=== PATIENT | male | born 1980 | race Caucasian/White ===

== ENCOUNTER 2024-01-24 10:06 | Emergency (ER) | payer BC, SELFPAY ==
[2024-01-24 10:23] VITALS: BP 117/91; PULSE 71; RESP 18; TEMP 36.4; O2SAT 98
--- NOTE | 2024-01-24 10:24 | ED.URI ---
HPI - URI/Sore Throat General Chief Complaint: Extremity Problem,Nontraumatic Stated Complaint: Sinus/Allergies and R Kneww Time Seen by Provider: 01/24/24 10:39 Source: patient and RN notes reviewed Mode of arrival: ambulatory Limitations: no limitations History of Present Illness HPI Narrative: 43-year-old male presents with multiple complaints. Reports 25 day history of runny nose, postnasal drainage, cough, ear pain, sinus pain and pressure. He reports his face feels hot. Reports he has tried antihistamine and DayQuil without relief. He also reports right knee pain that started more than 2 years ago and has gotten worse since then, worsens with going down stairs, pops. He has occasional numbness and tingling in the area. He denies any direct injury or trauma to the knee. MD elicited complaint: cough, rhinorrhea, nasal congestion and sinus pain Related Data Home Medications Medication Instructions Recorded Confirmed esomeprazole magnesium 20 mg 20 mg PO DAILY 01/24/24 01/24/24 capsule,delayed release (Nexium) Allergies Allergy/AdvReac Type Severity Reaction Status Date / Time No Known Allergies Allergy Verified 01/24/24 10:26 Review of Systems Review of Systems: CONSTITUTIONAL: Denies malaise, chills, sweats, or fever. EYES: Denies visual changes, redness, or discharge. ENT: Reports rhinorrhea, congestion, sinus pain, otalgia CARDIOVASCULAR: Denies chest pain, palpitations, or edema. RESPIRATORY: Reports cough. Denies dyspnea. GASTROINTESTINAL: Denies abdominal pain, nausea, vomiting, diarrhea SKIN: Denies rash or itching. MUSCULOSKELETAL: Denies myalgia. Reports right knee pain NEUROLOGIC: Denies headache. All systems reviewed & are unremarkable except as noted in HPI and below PMFSH Comments At time of signature, agree with nursing past medical, surgical, social and family history. There is no relevant family history pertinent to the presenting complaint Exam Narrative: GENERAL: Well-appearing, well-nourished, and in no acute distress. HEAD: Normocephalic EYES: PERRLA, conjunctivae clear ENT: Nares clear, turbinates edematous and erythematous. Mucous membranes moist. TM pearly choi with dull light reflex bilaterally; no tragal tenderness. Oropharynx not erythematous without lesions. Tonsils not enlarged and without exudate, no drooling, no hoarseness, no trismus, uvula midline. NECK: Supple. No lymphadenopathy CHEST: Clear to auscultation, breath sounds equal. No wheezing, rhonchi, rales, or stridor. No respiratory distress, speaks in full sentences. HEART: Regular rate and rhythm. No murmur heard. SKIN: Warm, dry, no rash. NEURO: Alert and oriented x3. PSYCH: Normal mood and affect Course Course Emergency Course: Patient is aware of diagnosis, understands and agrees to treatment plan. Anticipatory guidance given. Patient agrees to follow-up as directed and is aware of reasons to seek care at the emergency department. Portions of this record may have been created with voice recognition software Level of Care: Express Care Visit Vital Signs Vital signs: Vital Signs Temperature 97.5 F L 01/24/24 10:23 Pulse Rate 71 01/24/24 10:23 Respiratory Rate 18 01/24/24 10:23 Blood Pressure 117/91 H 01/24/24 10:23 Pulse Oximetry 98 01/24/24 10:23 Oxygen Delivery Room Air 01/24/24 10:23 Temperature 97.5 F L 01/24/24 10:23 Pulse Rate 71 01/24/24 10:23 Respiratory Rate 18 01/24/24 10:23 Blood Pressure 117/91 H 01/24/24 10:23 Pulse Oximetry 98 01/24/24 10:23 Oxygen Delivery Room Air 01/24/24 10:23 Reviewed. MDM - URI/Sore Throat MDM Narrative Medical decision making narrative: Differential diagnosis considered: Corcoran virus, strep pharyngitis, allergic rhinitis, upper respiratory tract infection, sinusitis, rhinosinusitis, nasopharyngitis. viral pharyngitis, otitis media, otitis externa, pneumonia, bronchitis, viral cough syndrome, viral syndrome, and i
== END 2024-01-24 10:53 | disposition home or self-care (01) ==
PROVIDERS: Emergency Provider Nurse Practitioner
DX: J32.9 Chronic sinusitis, unspecified (principal); J40 Bronchitis, not specified as acute or chronic; M25.561 Pain in right knee
CPT/HCPCS: 99213; G0463

== ENCOUNTER 2024-12-03 19:24 | Emergency (ER) | payer BC, SELFPAY ==
--- NOTE | 2024-12-03 19:28 | ED.GENADULT ---
HPI - General Adult General Chief complaint: Upper Respiratory Infection Stated complaint: fatigue Time Seen by Provider: 12/03/24 19:28 Source: patient Mode of arrival: ambulatory Limitations: no limitations History of Present Illness HPI narrative: 44-year-old male patient presents to the [facility] with complaints of cold symptoms for the past 6 days. Patient states this started off as fatigue to the point where he was not able to go to work. Patient states he had a working a full day on Wednesday and fatigue has gotten better and is resolving. Patient states he was having some chills and body aches and some congestion which is also resolving. Patient states he woke up this morning and had a lot of phlegm after he woke up and has been coughing. Patient denies any chest pain states he gets shortness of breath at times when he is coughing a lot. Denies any current fevers, body aches or chills. Patient states he has just been taking some [id number] cold and flu medication. Patient states he also does notice that his ears have been popping a lot more than normal but denies any pain. Related Data Allergies Allergy/AdvReac Type Severity Reaction Status Date / Time No Known Allergies Allergy Verified 12/03/24 19:35 Review of Systems Review of Systems: CONSTITUTIONAL: Denies fever, chills, or sweats. EYES: Denies visual changes, redness, or discharge. ENT: Positive rhinorrhea, congestion, denies sore throat, or otalgia. CARDIOVASCULAR: Denies chest pain, palpitations, or edema. RESPIRATORY: D positive cough denies dyspnea. GASTROINTESTINAL: Denies abdominal pain, nausea, vomiting, or diarrhea. GENITOURINARY: Denies dysuria or hematuria. SKIN: Denies rash or itching. MUSCULOSKELETAL: Denies back pain, joint pain, or myalgia. NEUROLOGIC: Denies headache, numbness, or weakness. PSYCHIATRIC: Denies anxiety or depression. [facility] Past Medical History Medical History (Updated 12/03/24 @ 19:57 by VINI Piedra) GERD (gastroesophageal reflux disease) CHRISTOFER (obstructive sleep apnea) Surgical History Surgical History History of nasal surgery (2018) cleaned out to help breathing Family History Family History Grandparent Heart disease Cerebrovascular accident Grandparent Hypertension Heart disease Social History Social History Smoking status: Never smoker Alcohol intake: current Drinks per week: 7 Substance use: never Substance use type: does not use Do You Feel Safe in your Home?: Yes Lack of Transportation: No Lack of Food: Never True Current Housing: I Have Housing Concerned About Future Housing: No Difficulty Paying Gas/Electric Bills: No Difficulty Paying for Meds: No Currently Unemployed: No Education: Master's Degree or Higher Difficulty w/ Childcare or Family Care: No Living arrangements: with family Occupation/Education: occupation 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 There is no relevant family history pertinent to the presenting complaint. Exam Narrative: GENERAL: Well-appearing, well-nourished, and in no acute distress. HEAD: Normocephalic, atraumatic. EYES: PERRLA and EOMI. ENT: Nares clear, no rhinorrhea or epistaxis. Mucous membranes moist. posterior pharynx with postnasal drip noted. No tonsillar enlargement, no exudates or lesions present. Bilateral TMs do appear have a little of fluid behind the TM but no erythema no bulging no concerns for infection and no foreign bodies the canal. NECK: Supple. No lymphadenopathy CHEST: Clear to auscultation. No respiratory distress. HEART: Regular rate and rhythm. No murmur heard. Normal peripheral pulses. ABDOMEN: Soft, nontender, nondistended, normal active bowel sounds. EXTREMITIES: Normal range of motion. No edema. SKIN: Warm, dry, no rash. NEURO: No focal deficits. Alert and oriented x3. Course Course Level of Care: Express Care Visit Vital Signs Vital signs: Vital Signs Temperature 36.8 C 12/03/24 19:35 Pulse Rate 76 12/03/24 19:35 Respiratory Rate 18 12/03/24 19:35 Blood Pressure 134/75 12/03/24 19:35 Pulse Oximetry 97 12/03/24 19:35 Oxygen Delivery Room Air 12/03/24 19:35 Temperature 36.8 C 12/03/24 19:35 Pulse Rate 76 12/03/24 19:35 Respiratory Rate 18 12/03/24 19:35 Blood Pressure 134/75 12/03/24 19:35 Pulse Oximetry 97 12/03/24 19:35 Oxygen Delivery Room Air 12/03/24 19:35 Vital signs reviewed. Medical Decision Making MDM Narrative Medical decision making narrative: Discussed with patient that point of care testing for COVID and influenza was negative today. Discussed with patient he most likely had some kind of virus this week and it sounds like it is resolving. Discussed with him he may need a couple more days for it to fully go away but I do not see any concerning symptoms today. Discussed with patient continue to take his [id number] medication and may also want to try a Flonase and a 24 hour antihistamine to help with the fluid behind his ear. Patient verbalized understanding denies any other questions or concerns at this time. Differential Diagnosis Differential Diagnosis: Differential diagnosis: Allergic rhinitis, chronic sinusitis, tonsillitis, acute sinusitis, infectious mononucleosis, seasonal influenza, pertussis, diphtheria, meningococcal disease, viral syndrome, viral bronchitis, RSV, COVID-19 Vital Signs Vital Signs: Vital Signs Temperature 36.8 C 12/03/24 19:35 Pulse Rate 76 12/03/24 19:35 Respiratory Rate 18 12/03/24 19:35 Blood Pressure 134/75 12/03/24 19:35 Pulse Oximetry 97 12/03/24 19:35 Oxygen Delivery Room Air 12/03/24 19:35 Temperature 36.8 C 12/03/24 19:35 Pulse Rate 76 12/03/24 19:35 Respiratory Rate 18 12/03/24 19:35 Blood Pressure 134/75 12/03/24 19:35 Pulse Oximetry 97 12/03/24 19:35 Oxygen Delivery Room Air 12/03/24 19:35 Critical Care Time Critical Care Time Critical Care Time: No Discharge Plan Discharge Clinical Impression: Viral URI with cough Patient Disposition: Home, Self-Care Condition: Stable Instructions: Antibiotic Form, Viral Syndrome (ED) Additional Instructions: Viral illness may last between 7-12days; antibiotic is NOT recommended at this time. Recommend antihistamine such as Benadryl at night time and Claritin/Zyrtec/Christina during the day Cough syrup may cause drowsiness; avoid driving or take it at night time. Also, recommend symptomatic treatment includes: rest, fluids, and increase humidity of the air at home. Recommend Acetaminophen or nonsteroidal anti-inflammatory agents (NSAIDs) as directed in the bottle to reduce fever and/pain/headache. Avoid smoking/second-hand smoke. Limit visits to areas with large crowds. Please schedule a follow-up visit with your personal physician for further evaluation and treatment within 3-5days. Including recheck and discussion of your blood pressure. If your symptoms persist, change or worsen significantly before you can contact your personal physician then please, without delay, go to the emergency department for further evaluation. Patient Language: Kyrgyz Prescriptions: No Action esomeprazole magnesium [Nexium] 20 mg capsule,delayed release(DR/EC) 20 mg PO DAILY Qty: 90 1RF Follow-up/Referrals: Lety Chawla APN-C [Primary Care Provider] - Time of Disposition: 19:57
[2024-12-03 19:35] VITALS: BP 134/75; PULSE 76; RESP 18; TEMP 36.8; O2SAT 97
[2024-12-03 20:02] LABS: EDCOVIDSCREEN Negative (Negative); EDINFLUASCREEN Negative (Negative); EDINFLUBSCREEN Negative (Negative)
== END 2024-12-03 20:00 | disposition home or self-care (01) ==
PROVIDERS: Emergency Provider Nurse Practitioner Family; PCP Nurse Practitioner Family
DX: J06.9 Acute upper respiratory infection, unspecified (principal); B97.89 Other viral agents as the cause of diseases classified elsewhere; Z20.822 Contact with and (suspected) exposure to COVID-19
CPT/HCPCS: 87426; 87804; 99212; G0463